=== PATIENT | female | born 1960 | race African-American/Black ===

== ENCOUNTER 2017-03-09 20:02 | Emergency (ER) | payer MEDICARE, MEDICAID ==
[~2017-03-09] VITALS: Ht 160 cm; Wt 70.0 kg
[~2017-03-09 20:02] MED LIST: FURO-152 PO; LEVOTHYROXINE PO; LIPITOR PO; WARF10TA20 PO
[2017-03-09] MEDS ORDERED: ACETAMINOPHEN WITH CODEINE 300/30MG TABLET PO ONE (22:00)
[2017-03-10 00:24] VITALS: BP 112/86
== END 2017-03-10 01:15 | disposition home or self-care (01) ==
LOC: ER 21:51
DX: M79.671 Pain in right foot (principal); I10 Essential (primary) hypertension; I50.9 Heart failure, unspecified; E03.9 Hypothyroidism, unspecified; F17.200 Nicotine dependence, unspecified, uncomplicated; F12.10 Cannabis abuse, uncomplicated; Z90.89 Acquired absence of other organs; Z92.29 Personal history of other drug therapy; Z79.01 Long term (current) use of anticoagulants; Z98.890 Other specified postprocedural states
CPT/HCPCS: 73630; 99284

== ENCOUNTER 2018-05-05 11:35 | Emergency (ER) | payer MEDICARE, MEDICAID ==
[~2018-05-05] VITALS: Ht 160 cm; Wt 75.0 kg
[~2018-05-05 11:35] MED LIST changes: -WARF10TA20 PO
[2018-05-05] MEDS ORDERED: IPRATROPIUM BROMIDE (0.02%) 0.5MG/2.5ML NEB HHN STA (12:13)
[2018-05-05] MEDS ORDERED: ALBUTEROL (0.083%) 2.5MG/3ML NEB HHN STA (12:13)
[2018-05-05] MEDS ORDERED: HYDROCODONE/ACETAMINOPHEN 5/325MG TABLET PO ONE (12:15)
[2018-05-05 14:43] VITALS: BP 145/82
== END 2018-05-05 14:44 | disposition home or self-care (01) ==
LOC: ER 13:26
DX: M13.842 Other specified arthritis, left hand (principal); J45.909 Unspecified asthma, uncomplicated; I25.10 Atherosclerotic heart disease of native coronary artery without angina pectoris; J44.9 Chronic obstructive pulmonary disease, unspecified; I11.0 Hypertensive heart disease with heart failure; I50.9 Heart failure, unspecified; E03.9 Hypothyroidism, unspecified; F12.10 Cannabis abuse, uncomplicated; Z90.49 Acquired absence of other specified parts of digestive tract; Z95.1 Presence of aortocoronary bypass graft; Z88.8 Allergy status to other drugs, medicaments and biological substances
CPT/HCPCS: 73110; 73130; 94640; 99284; J7611

== ENCOUNTER 2018-10-14 14:09 | Inpatient (IN) | payer MEDICARE, MEDICAID ==
[~2018-10-14] VITALS: Ht 160 cm; Wt 66.2 kg
[2018-10-14] MEDS ORDERED: HYDROCODONE/ACETAMINOPHEN 5/325MG TABLET PO ONE (18:00)
[2018-10-14] MEDS ORDERED: ONDANSETRON 4MG ODT PO ONE (18:00)
[2018-10-14 19:19] LABS: BASOPHILS % 1.4 % (0.0-2.0); EOSINOPHILS % 1.2 % (0.0-5.0); HEMATOCRIT. 39.8 % (36.0-48.0); HEMOGLOBIN. 13.2 g/dL (12.0-16.0); LYMPHOCYTES % 29.7 % (20.0-50.0); MEAN CORPUSCULAR HEMOGLOBIN 30.3 pg (28.0-32.0); MEAN CORPUSCULAR VOLUME 91.7 fL (81.0-99.0); MEAN PLATELET VOLUME 7.7 fl (7.4-10.4); MONOCYTES % 9.4 % (2.0-8.0); NEUTROPHILS % 58.3 % (40.0-76.0); PLATELET 285 x1000/uL (130-400); RED BLOOD CELL COUNT 4.34 mill/uL (4.2-5.4); RED CELL DISTRIBUTION WIDTH 18.1 % (11.6-14.6)
[2018-10-14 19:22] LABS: CHLORIDE 94 mEq/L (98-107)
[2018-10-14 19:36] LABS: PARTIAL THROMBOPLASTIN TIME 66.2 sec (23.4-31.0); PROTHROMBIN TIME 58.6 sec (9.1-11.1)
[2018-10-14] MEDS ORDERED: FENTANYL CITRATE/PF 50MCG/ML 2ML VIAL IV ONE (22:00)
[2018-10-14] MEDS ORDERED: ONDANSETRON HCL 4MG/2ML INJ IV ONE (22:00)
[2018-10-15] VITALS (7 sets, daily range): BP systolic 102–133; BP diastolic 59–80
[2018-10-15] MEDS ORDERED: IPRATROPIUM/ALBUTEROL 0.5-3(2.5)MG/3ML NEB HHN PRN ×3 (01:30→14:00)
[2018-10-15] MEDS ORDERED: ALBU90AE INH (01:40)
[2018-10-15] MEDS ORDERED: WARF7.5T48 PO (01:40)
[2018-10-15] MEDS: HYDROCODONE/ACETAMINOPHEN 10/325MG TABLET PO PRN ×3 (04:14→16:20)
[2018-10-15] MEDS: LEVOTHYROXINE SODIUM 50MCG TABLET PO SCH (06:35)
[2018-10-15] MEDS ORDERED: LEVOTHYROXINE SODIUM 50MCG TABLET PO SCH (07:20)
[2018-10-15 07:30] LABS: BASOPHILS % 1.3 % (0.0-2.0); EOSINOPHILS % 2.1 % (0.0-5.0); HEMATOCRIT. 39.3 % (36.0-48.0); HEMOGLOBIN. 13.2 g/dL (12.0-16.0); LYMPHOCYTES % 36.2 % (20.0-50.0); MEAN CORPUSCULAR HEMOGLOBIN 30.8 pg (28.0-32.0); MEAN CORPUSCULAR VOLUME 91.7 fL (81.0-99.0); MEAN PLATELET VOLUME 7.6 fl (7.4-10.4); MONOCYTES % 10.3 % (2.0-8.0); NEUTROPHILS % 50.1 % (40.0-76.0); PLATELET 295 x1000/uL (130-400); RED BLOOD CELL COUNT 4.29 mill/uL (4.2-5.4)
[2018-10-15 07:38] LABS: PROTHROMBIN TIME 48.5 sec (9.1-11.1)
[2018-10-15] MEDS: FUROSEMIDE 20MG TABLET PO SCH (08:44)
[2018-10-15] MEDS ORDERED: LISINOPRIL 20MG TABLET PO SCH (09:00)
[2018-10-15] MEDS ORDERED: FUROSEMIDE 20MG TABLET PO SCH (09:00)
[2018-10-15 16:21] LABS: PROTHROMBIN TIME 50.6 sec (9.1-11.1)
[2018-10-15 16:32] LABS: INR 5.2
[2018-10-16] VITALS: BP 115/78
[2018-10-16] MEDS: HYDROCODONE/ACETAMINOPHEN 10/325MG TABLET PO PRN (05:55)
[2018-10-16] MEDS: LEVOTHYROXINE SODIUM 50MCG TABLET PO SCH (06:31)
[2018-10-16 07:19] LABS: PROTHROMBIN TIME 46.4 sec (9.1-11.1)
[2018-10-16 08:00] VITALS: BP 116/63
[2018-10-16] MEDS: FUROSEMIDE 20MG TABLET PO SCH (09:00)
[2018-10-16 09:27] LABS: INR 4.7
[2018-10-16] MEDS ORDERED: PHYTONADIONE 10MG/ML AMP SUBCUT NR (10:45)
== END 2018-10-16 11:15 | disposition left against medical advice (07) | DRG 813 ==
LOC: ER 14:09 → 6EST 20:48 → EDBEDREQ 21:01 → EDBEDREQTM 21:01 → ENRESERV 21:47
PROVIDERS: ADMIT Internal Medicine; ATTEND Internal Medicine
DX: D68.9 Coagulation defect, unspecified (principal); I50.32 Chronic diastolic (congestive) heart failure; E87.1 Hypo-osmolality and hyponatremia; T45.515A Adverse effect of anticoagulants, initial encounter; J44.9 Chronic obstructive pulmonary disease, unspecified; I11.0 Hypertensive heart disease with heart failure; Z95.2 Presence of prosthetic heart valve; E03.9 Hypothyroidism, unspecified; E87.8 Other disorders of electrolyte and fluid balance, not elsewhere classified; J45.909 Unspecified asthma, uncomplicated; M19.90 Unspecified osteoarthritis, unspecified site; Z79.01 Long term (current) use of anticoagulants; F17.200 Nicotine dependence, unspecified, uncomplicated; I25.10 Atherosclerotic heart disease of native coronary artery without angina pectoris; Z90.49 Acquired absence of other specified parts of digestive tract; Y92.89 Other specified places as the place of occurrence of the external cause; I48.91 Unspecified atrial fibrillation
CPT/HCPCS: 36415; 73090; 73130; 80048; 84550; 93971; 96374; 96375; 99285; J2405; J3010; J3430; Q0162

== ENCOUNTER 2020-05-11 11:35 | Emergency (ER) | payer MEDICARE, MEDICAID ==
[~2020-05-11] VITALS: Ht 172.7 cm; Wt 55.0 kg
[~2020-05-11 11:35] MED LIST changes: +ALBU90AE INH; +WARF7.5T48 PO
[2020-05-11] MEDS ORDERED: HYDROCODONE/ACETAMINOPHEN 5/325MG TABLET PO ONE (13:00)
[2020-05-11] MEDS ORDERED: KETOROLAC 60MG/2ML VIAL IM ONE (13:00)
[2020-05-11 14:21] VITALS: BP 133/96
== END 2020-05-11 14:24 | disposition home or self-care (01) ==
LOC: ER 11:35
DX: M19.90 Unspecified osteoarthritis, unspecified site (principal); I11.0 Hypertensive heart disease with heart failure; I50.9 Heart failure, unspecified; J44.9 Chronic obstructive pulmonary disease, unspecified; E03.9 Hypothyroidism, unspecified; F12.10 Cannabis abuse, uncomplicated; Z90.49 Acquired absence of other specified parts of digestive tract; Z98.890 Other specified postprocedural states; Z95.1 Presence of aortocoronary bypass graft; Z88.8 Allergy status to other drugs, medicaments and biological substances; Z79.899 Other long term (current) drug therapy
CPT/HCPCS: 29105; 96372; 99283; J1885

== ENCOUNTER → 2020-08-26 | Outpatient (CLI) | payer MEDICARE, MEDICAID ==
[2020-08-26 10:32] LABS: BASOPHILS % 1.5 % (0.0-2.0); EOSINOPHILS % 7.9 % (0.0-5.0); HEMATOCRIT. 32.4 % (36.0-48.0); HEMOGLOBIN. 10.7 g/dL (12.0-16.0); LYMPHOCYTES % 41.7 % (20.0-50.0); MEAN PLATELET VOLUME 6.4 fl (7.4-10.4); MONOCYTES % 5.7 % (2.0-8.0); NEUTROPHILS % 43.2 % (40.0-76.0); PLATELET 218 x1000/uL (130-400); RED BLOOD CELL COUNT 3.44 mill/uL (4.2-5.4); RED CELL DISTRIBUTION WIDTH 17.6 % (11.6-14.6)
[2020-08-26 10:43] LABS: CHLORIDE 105 mEq/L (98-107)
[2020-08-26 10:50] LABS: LDL CHOLESTEROL 130 mg/dL (5-100); PROTHROMBIN TIME 50.8 sec (9.6-11.0)
[2020-08-26 10:52] LABS: T4 FREE 0.71 ng/dL (0.76-1.46)
[2020-08-26 10:53] LABS: HDL CHOLESTEROL 65 mg/dL (40-59)
[2020-08-26 11:06] LABS: INR 5.3
== END | disposition home or self-care (01) ==
LOC: LAB 09:49
PROVIDERS: ATTEND Internal Medicine
DX: I10 Essential (primary) hypertension (principal); E78.5 Hyperlipidemia, unspecified; E11.9 Type 2 diabetes mellitus without complications; D51.3 Other dietary vitamin B12 deficiency anemia; D64.9 Anemia, unspecified; E21.3 Hyperparathyroidism, unspecified; R42 Dizziness and giddiness; D68.9 Coagulation defect, unspecified; E20.9 Hypoparathyroidism, unspecified
CPT/HCPCS: 36415; 80053; 80061; 83036; 84439; 84443; 85025

== ENCOUNTER 2021-04-05 13:36 | Emergency (ER) | payer MEDICARE, MEDICAID ==
[~2021-04-05] VITALS: Ht 160 cm; Wt 69.0 kg
[2021-04-05 15:17] LABS: EOSINOPHILS % 4.5 % (0.0-5.0); HEMATOCRIT. 30.8 % (36.0-48.0); HEMOGLOBIN. 10.5 g/dL (12.0-16.0); LYMPHOCYTES % 34.9 % (20.0-50.0); MEAN CORPUSCULAR HEMOGLOBIN 31.8 pg (28.0-32.0); MEAN CORPUSCULAR VOLUME 93.2 fL (81.0-99.0); MEAN PLATELET VOLUME 7.8 fl (7.4-10.4); MONOCYTES % 7.1 % (2.0-8.0); NEUTROPHILS % 52.5 % (40.0-76.0); PLATELET 181 x1000/uL (130-400); RED BLOOD CELL COUNT 3.31 mill/uL (4.2-5.4); RED CELL DISTRIBUTION WIDTH 17.4 % (11.6-14.6)
[2021-04-05 15:21] LABS: CHLORIDE 103 mEq/L (98-107)
[2021-04-05 15:29] LABS: INR 3.3; PARTIAL THROMBOPLASTIN TIME 53.4 sec (23.4-31.0); PROTHROMBIN TIME 32.4 sec (9.6-11.0)
[2021-04-05 18:50] VITALS: BP 172/89
[2021-04-05] MEDS ORDERED: ALBU6.7H11 INH (19:03)
[2021-04-05] MEDS ORDERED: P50 MT (19:03)
== END 2021-04-05 19:35 | disposition home or self-care (01) ==
LOC: ER 13:36
DX: R06.02 Shortness of breath (principal); F12.10 Cannabis abuse, uncomplicated; E78.00 Pure hypercholesterolemia, unspecified; I10 Essential (primary) hypertension; J44.1 Chronic obstructive pulmonary disease with (acute) exacerbation; J45.909 Unspecified asthma, uncomplicated; Z88.6 Allergy status to analgesic agent; Z98.890 Other specified postprocedural states; Z79.899 Other long term (current) drug therapy; Z90.49 Acquired absence of other specified parts of digestive tract
CPT/HCPCS: 36415; 71045; 80053; 83880; 84484; 85025; 93005; 93970; 99285

== ENCOUNTER 2021-06-13 16:25 | Emergency (ER) | payer OTHER, MEDICAID ==
[~2021-06-13] VITALS: Ht 160 cm; Wt 68.0 kg
[~2021-06-13 16:25] MED LIST changes: +ALBU6.7H11 INH; +P50 MT
[2021-06-13 16:29] VITALS: BP 130/57
[2021-06-13] MEDS ORDERED: HYDROCODONE/ACETAMINOPHEN 10/325MG TABLET PO ONE (17:15)
== END 2021-06-13 18:35 | disposition left against medical advice (07) ==
LOC: ER 16:25
DX: M16.11 Unilateral primary osteoarthritis, right hip (principal); I11.9 Hypertensive heart disease without heart failure; E78.00 Pure hypercholesterolemia, unspecified; J45.909 Unspecified asthma, uncomplicated; J44.9 Chronic obstructive pulmonary disease, unspecified
CPT/HCPCS: 73502; 99283

== ENCOUNTER 2022-01-09 09:32 | Emergency (ER) | payer MEDICARE, MEDICAID ==
[~2022-01-09] VITALS: Ht 165.1 cm; Wt 55.0 kg
[~2022-01-09 09:32] MED LIST changes: -ALBU6.7H11 INH; +ALBU6.7H15 INH
[2022-01-09] MEDS ORDERED: OXYMETAZOLINE HCL NASAL SPRAY 15ML BOTHNSTRLS SCH (10:15)
[2022-01-09 10:55] LABS: BASOPHILS % 1.3 % (0.0-2.0); EOSINOPHILS % 4.4 % (0.0-5.0); HEMATOCRIT. 30.8 % (36.0-48.0); HEMOGLOBIN. 10.5 g/dL (12.0-16.0); LYMPHOCYTES % 39.7 % (20.0-50.0); MEAN CORPUSCULAR HEMOGLOBIN 31.2 pg (28.0-32.0); MEAN CORPUSCULAR VOLUME 91.6 fL (81.0-99.0); MEAN PLATELET VOLUME 6.9 fl (7.4-10.4); MONOCYTES % 6.6 % (2.0-8.0); PLATELET 259 x1000/uL (130-400); RED BLOOD CELL COUNT 3.36 mill/uL (4.2-5.4); RED CELL DISTRIBUTION WIDTH 16.8 % (11.6-14.6)
[2022-01-09 11:17] LABS: PROTHROMBIN TIME 60.2 sec (9.6-11.0)
[2022-01-09 11:22] LABS: INR 6.5
[2022-01-09 11:23] LABS: PARTIAL THROMBOPLASTIN TIME 87.2 sec (23.4-31.0)
[2022-01-09] MEDS ORDERED: PHYTONADIONE 10MG/ML AMP SUBCUT SCH (11:45)
[2022-01-09 12:20] VITALS: BP 133/83
== END 2022-01-09 12:20 | disposition home or self-care (01) ==
LOC: ER 09:55
DX: R04.0 Epistaxis (principal); D68.32 Hemorrhagic disorder due to extrinsic circulating anticoagulants; T45.515A Adverse effect of anticoagulants, initial encounter; Y92.018 Other place in single-family (private) house as the place of occurrence of the external cause; I25.10 Atherosclerotic heart disease of native coronary artery without angina pectoris; Z95.1 Presence of aortocoronary bypass graft; J44.9 Chronic obstructive pulmonary disease, unspecified; J45.909 Unspecified asthma, uncomplicated; E78.00 Pure hypercholesterolemia, unspecified; I10 Essential (primary) hypertension; Z79.01 Long term (current) use of anticoagulants; Z79.82 Long term (current) use of aspirin; Z79.51 Long term (current) use of inhaled steroids; Z79.52 Long term (current) use of systemic steroids; Z79.899 Other long term (current) drug therapy
CPT/HCPCS: 36415; 85025; 85610; 85730; 96372; 99283; J3430

== ENCOUNTER 2023-01-01 11:37 | Inpatient (IN) | payer MEDICARE, MEDICAID ==
[~2023-01-01] VITALS: Ht 160 cm; Wt 62.3 kg
[2023-01-01 17:45] VITALS: BP 152/63
[2023-01-01] MEDS ORDERED: WARF-53 MT (18:10)
[2023-01-01] MEDS ORDERED: WARF1TAB85 MT (18:10)
[2023-01-01] MEDS ORDERED: GUAIFENESIN 200MG/10ML SUGAR FREE UDC PO PRN (18:30)
[2023-01-01] MEDS ORDERED: IPRATROPIUM/ALBUTEROL 0.5-3(2.5)MG/3ML NEB HHN SCH (18:30)
[2023-01-01] MEDS ORDERED: NITROGLYCERIN 0.4MG TABLET SL SL PRN (18:30)
[2023-01-01] MEDS ORDERED: DOCUSATE SODIUM 100MG CAPSULE PO PRN (18:30)
[2023-01-01] MEDS ORDERED: MAGNESIUM/ALUMINUM HYDROXIDE/SIMETHICONE 30ML UDC PO PRN (18:30)
[2023-01-01] MEDS ORDERED: ZOLPIDEM TARTRATE 5MG TABLET PO PRN (18:30)
[2023-01-01] MEDS ORDERED: IPRATROPIUM/ALBUTEROL 0.5-3(2.5)MG/3ML NEB NEB PRN (18:30)
[2023-01-01] MEDS ORDERED: ACETAMINOPHEN 325MG TABLET PO PRN (18:30)
[2023-01-01] MEDS ORDERED: CLONIDINE 0.1MG TABLET PO PRN (18:30)
[2023-01-01] MEDS ORDERED: ONDANSETRON HCL 4MG/2ML INJ IV PRN (18:30)
[2023-01-01] MEDS ORDERED: IPRATROPIUM BROMIDE (0.02%) 0.5MG/2.5ML NEB HHN PRN (19:15)
[2023-01-01] MEDS: ALBUTEROL (0.083%) 2.5MG/3ML NEB HHN SCH (19:15)
[2023-01-01] MEDS ORDERED: ALBUTEROL (0.083%) 2.5MG/3ML NEB HHN PRN (19:15)
[2023-01-01] MEDS: IPRATROPIUM BROMIDE (0.02%) 0.5MG/2.5ML NEB HHN SCH (19:15)
[2023-01-01 20:00] VITALS: BP 129/72
[2023-01-01] MEDS ORDERED: LEVO50TA PO (20:06)
[2023-01-01] MEDS ORDERED: FURO20TA4 PO (20:07)
[2023-01-01] MEDS: AZITHROMYCIN 500 MG in DEXT 5% WATER 250 ML IV SCH (21:28)
[2023-01-01] MEDS: GUAIFENESIN 600MG ER TABLET PO SCH (21:28)
[2023-01-01] MEDS: FAMOTIDINE 20MG TABLET PO SCH (21:28)
[2023-01-01] MEDS: FUROSEMIDE 40MG/4ML VIAL IVP SCH (21:28)
[2023-01-01] MEDS: METHYLPREDNISOLONE SOD SUCC 40 MG/ML VIAL IV SCH (21:28)
[2023-01-01] MEDS: ACETAMINOPHEN 325MG TABLET PO PRN (21:29)
[2023-01-01 21:58] LABS: PROTHROMBIN TIME 60.6 sec (9.6-11.0)
[2023-01-01 22:00] LABS: HEMATOCRIT. 29.9 % (36.0-48.0); HEMOGLOBIN. 9.9 g/dL (12.0-16.0); MEAN CORPUSCULAR HEMOGLOBIN 30.6 pg (28.0-32.0); MEAN PLATELET VOLUME 7.5 fl (7.4-10.4); PLATELET 266 x1000/uL (130-400); RED BLOOD CELL COUNT 3.22 mill/uL (4.2-5.4); RED CELL DISTRIBUTION WIDTH 17.7 % (11.6-14.6)
[2023-01-01 22:12] LABS: T4 FREE 0.65 ng/dL (0.76-1.46)
[2023-01-01 22:33] LABS: PLATELET ESTIMATE NORMAL
[2023-01-01 22:36] LABS: VITAMIN B12 SERUM 447 pg/mL (211-911)
[2023-01-01 22:55] LABS: INR 6.3
[2023-01-02] VITALS: BP 126/79
[2023-01-02 00:02] LABS: CHLORIDE 97 mEq/L (98-107)
[2023-01-02 00:13] LABS: PROTHROMBIN TIME 66.5 sec (9.6-11.0)
[2023-01-02] MEDS: ALBUTEROL (0.083%) 2.5MG/3ML NEB HHN SCH ×6 (00:38→21:42)
[2023-01-02 00:39] LABS: CREATINE KINASE 2220 IU/L (26-192); CREATINE KINASE MB FRACTION 6.7 ng/mL (0.5-3.6)
[2023-01-02] MEDS: IPRATROPIUM BROMIDE (0.02%) 0.5MG/2.5ML NEB HHN SCH ×6 (00:39→21:42)
[2023-01-02 00:53] LABS: PARTIAL THROMBOPLASTIN TIME 76.9 sec (23.4-31.0)
[2023-01-02 01:27] LABS: *AMPHETAMINES SCREEN URINE NEGATIVE (NEGATIVE); *BARBITURATES SCREEN URINE NEGATIVE (NEGATIVE); *BENZODIAZEPINES SCREEN URINE NEGATIVE (NEGATIVE); *COCAINE SCREEN URINE NEGATIVE (NEGATIVE); CANNABINOID URINE SCREEN NEGATIVE (NEGATIVE); METHADONE URINE SCREEN NEGATIVE (NEGATIVE); OPIATES URINE SCREEN NEGATIVE (NEGATIVE); PHENCYCLIDINE URINE SCREEN NEGATIVE (NEGATIVE)
[2023-01-02 04:00] VITALS: BP 146/77
[2023-01-02] MEDS: SPIRONOLACTONE 25MG TABLET PO SCH ×2 (06:45→17:11)
[2023-01-02] MEDS: METHYLPREDNISOLONE SOD SUCC 40 MG/ML VIAL IV SCH ×4 (06:45→21:37)
[2023-01-02] MEDS: FUROSEMIDE 40MG/4ML VIAL IVP SCH ×2 (06:45→17:11)
[2023-01-02] MEDS ORDERED: LEVOTHYROXINE SODIUM 50MCG TABLET PO SCH (07:40)
[2023-01-02 08:00] VITALS: BP 138/70
[2023-01-02] MEDS ORDERED: ENALAPRIL 5MG TABLET PO SCH (09:00)
[2023-01-02] MEDS: GUAIFENESIN 600MG ER TABLET PO SCH ×3 (09:00→21:22)
[2023-01-02] MEDS ORDERED: LOSARTAN POTASSIUM 50 MG TABLET PO SCH (11:00)
[2023-01-02 12:00] VITALS: BP 131/77
[2023-01-02 16:00] VITALS: BP 144/71
[2023-01-02] MEDS: ACETAMINOPHEN 325MG TABLET PO PRN ×2 (17:10→22:03)
[2023-01-02 20:00] VITALS: BP 134/80
[2023-01-02] MEDS: AZITHROMYCIN 500 MG in DEXT 5% WATER 250 ML IV SCH (21:21)
[2023-01-02] MEDS: FAMOTIDINE 20MG TABLET PO SCH (21:22)
[2023-01-03] VITALS: BP 112/42
[2023-01-03] MEDS: IPRATROPIUM BROMIDE (0.02%) 0.5MG/2.5ML NEB HHN SCH (01:34)
[2023-01-03] MEDS: ALBUTEROL (0.083%) 2.5MG/3ML NEB HHN SCH (01:34)
[2023-01-03 04:00] VITALS: BP 122/69
[2023-01-03] MEDS: SPIRONOLACTONE 25MG TABLET PO SCH (05:55)
[2023-01-03] MEDS: FUROSEMIDE 40MG/4ML VIAL IVP SCH (05:55)
[2023-01-03] MEDS: METHYLPREDNISOLONE SOD SUCC 40 MG/ML VIAL IV SCH (05:56)
== END 2023-01-03 07:36 | disposition left against medical advice (07) | DRG 291 ==
LOC: 7WST 18:01
PROVIDERS: ADMIT Internal Medicine; ATTEND Internal Medicine
DX: I11.0 Hypertensive heart disease with heart failure (principal); I50.33 Acute on chronic diastolic (congestive) heart failure; J96.01 Acute respiratory failure with hypoxia; J44.1 Chronic obstructive pulmonary disease with (acute) exacerbation; E87.1 Hypo-osmolality and hyponatremia; J45.901 Unspecified asthma with (acute) exacerbation; E03.9 Hypothyroidism, unspecified; D64.9 Anemia, unspecified; Z20.822 Contact with and (suspected) exposure to COVID-19; E78.5 Hyperlipidemia, unspecified; I25.10 Atherosclerotic heart disease of native coronary artery without angina pectoris; M19.90 Unspecified osteoarthritis, unspecified site; Z53.29 Procedure and treatment not carried out because of patient's decision for other reasons; Z88.6 Allergy status to analgesic agent; Z28.310 Unvaccinated for COVID-19; Z95.2 Presence of prosthetic heart valve; Z79.01 Long term (current) use of anticoagulants; Z79.899 Other long term (current) drug therapy
CPT/HCPCS: 36415; 71045; 80053; 80305; 82550; 82553; 82607; 82746; 83036; 83540; 83550; 83605; 83880; 84145; 84439; 84443; 84484; 85025; 87070; 87426; 93306; 93970; 94640; J0456; J1940; J2405; J2920; J7060

== ENCOUNTER 2023-02-17 11:16 | Emergency (ER) | payer MEDICARE, MEDICAID ==
[~2023-02-17] VITALS: Ht 160 cm; Wt 70.0 kg
[~2023-02-17 11:16] MED LIST changes: -FURO-152 PO; +FURO20TA4 PO; +LEVO50TA PO; -LEVOTHYROXINE PO; -P50 MT; +WARF-53 MT; +WARF1TAB85 MT; -WARF7.5T48 PO
[2023-02-17] MEDS ORDERED: IPRATROPIUM/ALBUTEROL 0.5-3(2.5)MG/3ML NEB HHN ONE (11:30)
[2023-02-17 12:02] LABS: HEMATOCRIT 32.1 % (36.0-48.0); MEAN CORPUSCULAR HEMOGLOBIN 31.1 pg (28.0-32.0); MEAN CORPUSCULAR VOLUME 91.1 fL (81.0-99.0); PLATELET 321 x1000/uL (130-400); RED BLOOD CELL COUNT 3.52 mill/uL (4.2-5.4); RED CELL DISTRIBUTION WIDTH 17.6 % (11.6-14.6)
[2023-02-17 12:29] LABS: HCG SCREEN NEGATIVE
[2023-02-17] MEDS ORDERED: IPRATROPIUM/ALBUTEROL 0.5-3(2.5)MG/3ML NEB ONE (13:07)
[2023-02-17 13:24] LABS: CHLORIDE 98 mEq/L (98-107)
[2023-02-17 13:29] LABS: PROTHROMBIN TIME 44.4 sec (9.6-11.0)
[2023-02-17 13:35] LABS: INR 4.5
[2023-02-17] MEDS ORDERED: PHYTONADIONE 10 MG/10 ML ORALSYR PO ONE (14:30)
[2023-02-17 15:00] VITALS: BP 140/82
[2023-02-17] MEDS ORDERED: P50 MT (15:38)
[2023-02-17] MEDS ORDERED: IPRA4AER INH (15:38)
[2023-02-17] MEDS ORDERED: ALBU90AE INH (15:38)
== END 2023-02-17 16:01 | disposition home or self-care (01) ==
LOC: ER 11:39
DX: J44.1 Chronic obstructive pulmonary disease with (acute) exacerbation (principal); I10 Essential (primary) hypertension; Z90.49 Acquired absence of other specified parts of digestive tract; Z79.899 Other long term (current) drug therapy
CPT/HCPCS: 36415; 71045; 80053; 83880; 84484; 84703; 85027; 93005; 94640; 99285; J3430

== ENCOUNTER 2023-04-23 00:19 | Emergency (ER) | payer MEDICARE, MEDICAID ==
[~2023-04-23] VITALS: Ht 160 cm; Wt 71.0 kg
[~2023-04-23 00:19] MED LIST changes: +IPRA4AER INH; +P50 MT
[2023-04-23] MEDS ORDERED: METHYLPREDNISOLONE SOD SUCC 125MG/2ML (ACT-O-VIAL) IV STA (01:06)
[2023-04-23] MEDS ORDERED: IPRATROPIUM BROMIDE (0.02%) 0.5MG/2.5ML NEB HHN STA (01:06)
[2023-04-23] MEDS ORDERED: ALBUTEROL (0.083%) 2.5MG/3ML NEB HHN STA (01:06)
[2023-04-23] MEDS ORDERED: ASPIRIN 81MG TABLET PO ONE (01:15)
[2023-04-23] MEDS ORDERED: FUROSEMIDE 40MG/4ML VIAL IV ONE (01:15)
[2023-04-23 01:24] VITALS: PULSE 72; RESP 20; O2SAT 100
[2023-04-23 02:30] LABS: BASOPHILS % 1.3 % (0.0-2.0); EOSINOPHILS % 8.1 % (0.0-5.0); HEMATOCRIT. 30.9 % (36.0-48.0); HEMOGLOBIN. 10.4 g/dL (12.0-16.0); MEAN CORPUSCULAR HEMOGLOBIN 29.6 pg (28.0-32.0); MEAN PLATELET VOLUME 7.2 fl (7.4-10.4); MONOCYTES % 8.5 % (2.0-8.0); NEUTROPHILS % 50.1 % (40.0-76.0); PLATELET 236 x1000/uL (130-400); RED BLOOD CELL COUNT 3.51 mill/uL (4.2-5.4); RED CELL DISTRIBUTION WIDTH 17.8 % (11.6-14.6)
[2023-04-23] MEDS ORDERED: ACETAMINOPHEN 325MG TABLET PO ONE (03:15)
[2023-04-23 03:21] LABS: CHLORIDE 96 mEq/L (98-107)
[2023-04-23 12:51] VITALS: BP 153/93; PULSE 88; RESP 18; TEMP 98.8
== END 2023-04-23 14:01 | disposition admitted as inpatient to this hospital (09) ==
LOC: ER 00:19 → CANBEDREQ 14:15
DX: I11.0 Hypertensive heart disease with heart failure (principal); I50.9 Heart failure, unspecified; J44.1 Chronic obstructive pulmonary disease with (acute) exacerbation; Z90.49 Acquired absence of other specified parts of digestive tract; Z98.890 Other specified postprocedural states
CPT/HCPCS: 99285; 96374; 71045; 96375; 80053; 83880; 85025; 84484; 36415; 93005; 94644; J1940; J2930; 94640

== ENCOUNTER 2024-03-23 15:58 | Inpatient (IN) | payer MEDICARE, MEDICAID ==
[~2024-03-23] VITALS: Ht 160 cm; Wt 69.4 kg
[2024-03-23] MEDS: IPRATROPIUM BROMIDE (0.02%) 0.5MG/2.5ML NEB HHN STA (16:34)
[2024-03-23] MEDS: ALBUTEROL (0.083%) 2.5MG/3ML NEB HHN SCH (16:34)
[2024-03-23 16:35] VITALS: PULSE 87; RESP 22; O2SAT 98
[2024-03-23 16:44] LABS: BASOPHILS % 2.5 % (0.0-2.0); EOSINOPHILS % 7.6 % (0.0-5.0); HEMOGLOBIN. 10.7 g/dL (12.0-16.0); MEAN CORPUSCULAR HGB CONC 32.3 g/dL (31.0-37.0); MEAN CORPUSCULAR VOLUME 86.7 fL (81.0-99.0); MEAN PLATELET VOLUME 7.2 fl (7.4-10.4); MONOCYTES % 10.8 % (2.0-8.0); NEUTROPHILS % 53.1 % (40.0-76.0); PLATELET 271 x1000/uL (130-400); RED BLOOD CELL COUNT 3.81 mill/uL (4.2-5.4); RED CELL DISTRIBUTION WIDTH 18.9 % (11.6-14.6); WHITE BLOOD COUNT 3.1 x1000/uL (4.5-11.0)
[2024-03-23 16:49] LABS: CHLORIDE 96 mEq/L (98-107); SODIUM 128 mEq/L (136-145)
[2024-03-23 16:50] LABS: CALCIUM 10.1 mg/dL (8.7-10.4); CARBON DIOXIDE 28 mEq/L (21-32)
[2024-03-23 16:55] LABS: CREATININE 1.2 mg/dL (0.6-1.0); GLUCOSE 80 mg/dL (70-105); UREA NITROGEN BLOOD 13 mg/dL (9-23)
[2024-03-23 16:56] LABS: TROPONIN I HIGH SENSITIVITY 16 ng/L (3.0-34)
[2024-03-23] MEDS: MAGNESIUM 2 G PREMIX 50 ML IV ONE (17:12)
[2024-03-23] MEDS: METHYLPREDNISOLONE SOD SUCC 125MG/2ML (ACT-O-VIAL) IV STA (17:12)
[2024-03-23] MEDS ORDERED: IPRATROPIUM/ALBUTEROL 0.5-3(2.5)MG/3ML NEB HHN PRN ×2 (20:15→21:00)
[2024-03-23] MEDS ORDERED: GUAIFENESIN 200MG/10ML SUGAR FREE UDC PO PRN (20:15)
[2024-03-23] MEDS ORDERED: ONDANSETRON HCL 4MG/2ML INJ IV PRN (20:15)
[2024-03-23] MEDS ORDERED: IPRATROPIUM/ALBUTEROL 0.5-3(2.5)MG/3ML NEB HHN SCH (20:15)
[2024-03-23] MEDS ORDERED: MAGNESIUM/ALUMINUM HYDROXIDE/SIMETHICONE 30ML UDC PO PRN (20:15)
[2024-03-23] MEDS ORDERED: DOCUSATE SODIUM 100MG CAPSULE PO PRN (20:15)
[2024-03-23] MEDS ORDERED: CLONIDINE 0.1MG TABLET PO PRN (20:15)
[2024-03-23] MEDS ORDERED: ACETAMINOPHEN 325MG TABLET PO PRN (20:15)
[2024-03-23] MEDS ORDERED: DEXTROSE 50% WATER 50ML SYRINGE IV PRN (20:30)
[2024-03-23 20:49] LABS: IRON 50 ug/dL (50-170)
[2024-03-23 20:57] LABS: FERRITIN 18 ng/mL (10-291); FOLIC ACID (FOLATE) SERUM 12.47 ng/mL (>5.38); VITAMIN B12 SERUM 696 pg/mL (211-911)
[2024-03-23] MEDS: LISINOPRIL 10MG TABLET PO SCH (21:19)
[2024-03-23] MEDS: SODIUM CHLORIDE 0.9% 1,000 ML IV ONE (21:19)
[2024-03-23] MEDS: BLOOD SUGAR DIAGNOSTIC STRIP TEST SCH (21:45)
[2024-03-23 23:14] VITALS: PULSE 84; RESP 20; O2SAT 96
[2024-03-23] MEDS: IPRATROPIUM/ALBUTEROL 0.5-3(2.5)MG/3ML NEB HHN SCH (23:14)
[2024-03-23 23:57] LABS: TROPONIN I HIGH SENSITIVITY 9 ng/L (3.0-34)
[2024-03-23 23:58] LABS: CREATINE KINASE 527 IU/L (34-145)
[2024-03-24] MEDS: MAGNESIUM 4 G PREMIX 100 ML IV NR (01:49)
[2024-03-24 02:41] VITALS: PULSE 86; RESP 20; O2SAT 94
[2024-03-24 04:56] VITALS: BP 156/79; PULSE 89; RESP 20; TEMP 98.3
[2024-03-24 04:57] VITALS: BP 156/79; PULSE 85; RESP 20; TEMP 98.4
[2024-03-24] MEDS: LACTATED RINGERS 1,000 ML IV NR (06:39)
[2024-03-24 08:00] VITALS: BP 153/90; PULSE 82; RESP 15; TEMP 98.1
[2024-03-24] MEDS: METHYLPREDNISOLONE SOD SUCC 40MG/ML (ACT-O-VIAL) IV SCH (08:00)
[2024-03-24] MEDS ORDERED: BUDESONIDE 0.5MG/2ML NEB HHN SCH (09:00)
[2024-03-24] MEDS: PANTOPRAZOLE 40MG DR TABLET PO SCH (09:06)
[2024-03-24 12:00] VITALS: BP 150/86; PULSE 90; RESP 18; TEMP 97.9
== END 2024-03-24 11:45 | disposition left against medical advice (07) | DRG 189 ==
LOC: ER 15:58 → 5WST 19:59 → EDBEDREQTM 20:00 → EDBEDREQ 20:00 → 7EST 03-24 05:38
PROVIDERS: ADMIT Internal Medicine; ATTEND Internal Medicine
DX: J96.21 Acute and chronic respiratory failure with hypoxia (principal); J44.1 Chronic obstructive pulmonary disease with (acute) exacerbation; E87.1 Hypo-osmolality and hyponatremia; M62.82 Rhabdomyolysis; N17.9 Acute kidney failure, unspecified; R65.10 Systemic inflammatory response syndrome (SIRS) of non-infectious origin without acute organ dysfunction; D64.9 Anemia, unspecified; D72.10 Eosinophilia, unspecified; D72.819 Decreased white blood cell count, unspecified; I11.0 Hypertensive heart disease with heart failure; Z20.822 Contact with and (suspected) exposure to COVID-19; I50.9 Heart failure, unspecified; Z53.29 Procedure and treatment not carried out because of patient's decision for other reasons; Z79.899 Other long term (current) drug therapy; Z88.6 Allergy status to analgesic agent; Z95.1 Presence of aortocoronary bypass graft; Z95.2 Presence of prosthetic heart valve; Z99.81 Dependence on supplemental oxygen
CPT/HCPCS: 36415; 71045; 80048; 82550; 82607; 82728; 82746; 82962; 83036; 83540; 83735; 83880; 84100; 84145; 84484; 85025; 87426; 87804; 93005; 93970; 94640; 99291; J2920; J2930; J3475

== ENCOUNTER 2025-05-01 20:43 | Emergency (ER) | payer MEDICARE, MEDICAID ==
[~2025-05-01] VITALS: Ht 160 cm; Wt 70.3 kg
[2025-05-01 20:59] VITALS: O2SAT 94
[2025-05-01 21:00] VITALS: TEMP 37.2
[2025-05-01] MEDS: ACETAMINOPHEN WITH CODEINE 300/30MG TABLET PO ONE (22:50)
[2025-05-02 00:29] LABS: BASOPHILS % 2.3 % (0.0-2.0); EOSINOPHILS % 0.6 % (0.0-5.0); HEMATOCRIT. 33.7 % (36.0-48.0); HEMOGLOBIN. 11.5 g/dL (12.0-16.0); LYMPHOCYTES % 13.9 % (20.0-50.0); MEAN CORPUSCULAR HEMOGLOBIN 30.4 pg (28.0-32.0); MEAN CORPUSCULAR HGB CONC 34.1 g/dL (31.0-37.0); MEAN CORPUSCULAR VOLUME 89.4 fL (81.0-99.0); MEAN PLATELET VOLUME 7.3 fl (7.4-10.4); MONOCYTES % 8.5 % (2.0-8.0); NEUTROPHILS % 74.7 % (40.0-76.0); PLATELET 273 x1000/uL (130-400); RED BLOOD CELL COUNT 3.77 mill/uL (4.2-5.4); RED CELL DISTRIBUTION WIDTH 16.8 % (11.6-14.6); WHITE BLOOD COUNT 6.6 x1000/uL (4.5-11.0)
[2025-05-02 00:38] LABS: CHLORIDE 91 mEq/L (98-107); POTASSIUM 3.9 mEq/L (3.5-5.1); SODIUM 129 mEq/L (136-145)
[2025-05-02 00:39] LABS: CALCIUM 9.8 mg/dL (8.7-10.4); CARBON DIOXIDE 28 mEq/L (21-32)
[2025-05-02 00:44] LABS: GLUCOSE 88 mg/dL (70-105); TROPONIN I HIGH SENSITIVITY 28 ng/L (3.0-34); UREA NITROGEN BLOOD 19 mg/dL (9-23)
[2025-05-02 00:45] LABS: INR 3.2; PARTIAL THROMBOPLASTIN TIME 48.7 sec (23.4-31.0); PROTHROMBIN TIME 31.1 sec (9.6-11.0)
[2025-05-02 00:46] LABS: ALANINE AMINOTRANSFERASE 10 IU/L (10-49); ALBUMIN 4.4 g/dL (3.2-4.8); ASPARTATE AMINOTRANSFERASE 69 IU/L (<34); BILIRUBIN TOTAL 1.3 mg/dL (0.1-1.0)
[2025-05-02 00:47] LABS: CREATININE 1.3 mg/dL (0.6-1.0)
[2025-05-02] MEDS ORDERED: T3 PO (02:14)
[2025-05-02 02:29] VITALS: BP 124/73; PULSE 90; RESP 18; O2SAT 95
== END 2025-05-02 02:30 | disposition home or self-care (01) ==
LOC: ER 20:43
DX: R60.9 Edema, unspecified (principal); E87.1 Hypo-osmolality and hyponatremia; N18.9 Chronic kidney disease, unspecified; I50.9 Heart failure, unspecified; I51.9 Heart disease, unspecified; Z88.6 Allergy status to analgesic agent; Z79.899 Other long term (current) drug therapy
CPT/HCPCS: 36415; 71045; 80053; 83880; 84484; 85025; 93005; 93971; 99285

== ENCOUNTER 2025-05-13 22:50 | Emergency (ER) | payer MEDICARE, MEDICAID ==
[~2025-05-13] VITALS: Ht 160 cm; Wt 70.5 kg
[~2025-05-13 22:50] MED LIST changes: +T3 PO
[2025-05-13 23:28] VITALS: O2SAT 94
[2025-05-14] MEDS: ACETAMINOPHEN 500MG TABLET PO ONE (01:54)
[2025-05-14] MEDS ORDERED: TOPUD MT (04:33)
[2025-05-14 04:56] VITALS: BP 109/70; PULSE 73; RESP 19; TEMP 36.8; O2SAT 100
== END 2025-05-14 05:08 | disposition home or self-care (01) ==
LOC: ER 22:50
DX: M19.041 Primary osteoarthritis, right hand (principal); M19.042 Primary osteoarthritis, left hand; I50.9 Heart failure, unspecified; Z95.1 Presence of aortocoronary bypass graft; Z79.899 Other long term (current) drug therapy; Z79.01 Long term (current) use of anticoagulants; Z88.6 Allergy status to analgesic agent
CPT/HCPCS: 73130; 93971; 99284; A4565

== ENCOUNTER 2025-07-06 22:43 | Inpatient (IN) | payer MEDICARE, MEDICAID ==
[~2025-07-06] VITALS: Ht 160 cm; Wt 64.9 kg
[~2025-07-06 22:43] MED LIST changes: +TOPUD MT
[2025-07-06 22:46] VITALS: O2SAT 98
[2025-07-06] MEDS ORDERED: ONDANSETRON HCL 4MG/2ML INJ IV ONE (23:15)
[2025-07-06] MEDS ORDERED: MORPHINE SULFATE 4 MG/ML INJ (FOR IV/IM USE) IV ONE (23:15)
[2025-07-06 23:39] LABS: BASOPHILS % 1.4 % (0.0-2.0); EOSINOPHILS % 1.6 % (0.0-5.0); HEMATOCRIT. 29.6 % (36.0-48.0); HEMOGLOBIN. 9.7 g/dL (12.0-16.0); LYMPHOCYTES % 20.5 % (20.0-50.0); MEAN PLATELET VOLUME 6.8 fl (7.4-10.4); MONOCYTES % 10.0 % (2.0-8.0); NEUTROPHILS % 66.5 % (40.0-76.0); PLATELET 389 x1000/uL (130-400); RED BLOOD CELL COUNT 3.27 mill/uL (4.2-5.4); RED CELL DISTRIBUTION WIDTH 18.3 % (11.6-14.6)
[2025-07-06 23:43] LABS: INR 2.5
[2025-07-07 00:11] LABS: CREATININE 1.2 mg/dL (0.6-1.0)
[2025-07-07 00:12] LABS: UREA NITROGEN BLOOD 18 mg/dL (9-23)
[2025-07-07 00:13] LABS: ASPARTATE AMINOTRANSFERASE 65 IU/L (<34); BILIRUBIN DIRECT 0.2 mg/dL (<=3.0)
[2025-07-07 00:14] LABS: BILIRUBIN TOTAL 0.6 mg/dL (0.1-1.0); PROTEIN TOTAL 6.8 g/dL (6.0-8.3)
[2025-07-07 00:20] LABS: TROPONIN I HIGH SENSITIVITY 68 ng/L (3.0-34)
[2025-07-07] MEDS: MORPHINE SULFATE 4 MG/ML INJ (FOR IV/IM USE) IV NR (00:53)
[2025-07-07] MEDS: ONDANSETRON HCL 4MG/2ML INJ IV NR (00:53)
[2025-07-07] MEDS: SODIUM CHLORIDE 0.9% 1,000 ML IV ONE (00:53)
[2025-07-07] MEDS ORDERED: DOCUSATE SODIUM 100MG CAPSULE PO PRN (02:15)
[2025-07-07] MEDS ORDERED: CLONIDINE 0.1MG TABLET PO PRN (02:15)
[2025-07-07] MEDS ORDERED: ACETAMINOPHEN 325MG TABLET PO PRN (02:15)
[2025-07-07] MEDS ORDERED: IPRATROPIUM/ALBUTEROL 0.5-3(2.5)MG/3ML NEB HHN PRN (02:15)
[2025-07-07] MEDS ORDERED: MAGNESIUM/ALUMINUM HYDROXIDE/SIMETHICONE 30ML UDC PO PRN (02:15)
[2025-07-07] MEDS ORDERED: LIDOCAINE/PRILOCAINE CREAM 5 GM TUBE TOP PRN (02:15)
[2025-07-07] MEDS ORDERED: GUAIFENESIN 200MG/10ML SUGAR FREE UDC PO PRN (02:15)
[2025-07-07] MEDS ORDERED: ONDANSETRON HCL 4MG/2ML INJ IV PRN (02:15)
[2025-07-07] MEDS: GABAPENTIN 100MG CAPSULE PO SCH (03:45)
[2025-07-07 04:00] VITALS: BP 100/66; PULSE 66; RESP 16; TEMP 37.1; O2SAT 96
[2025-07-07 04:57] VITALS: BP 100/66; PULSE 66; RESP 16; TEMP 37.0852
[2025-07-07] MEDS: KETOROLAC 15MG/ML VIAL IV NR (05:32)
[2025-07-07] MEDS: DICLOFENAC SODIUM 1% GEL 50GM TOP SCH (05:32)
[2025-07-07] MEDS: LEVOTHYROXINE SODIUM 50MCG TABLET PO SCH (07:16)
[2025-07-07 08:00] VITALS: BP 78/50; PULSE 78; RESP 16; TEMP 36.5; O2SAT 97
[2025-07-07] MEDS: LISINOPRIL 10MG TABLET PO SCH (08:46)
[2025-07-07] MEDS: FUROSEMIDE 40MG/4ML VIAL IV SCH (08:58)
[2025-07-07] MEDS: PANTOPRAZOLE SODIUM 40 MG/VIAL IV SCH (08:59)
[2025-07-07 12:00] VITALS: BP 85/49; PULSE 77; RESP 18; TEMP 36.7; O2SAT 98
[2025-07-07 12:27] LABS: INR 3.4
[2025-07-07 12:42] LABS: TROPONIN I HIGH SENSITIVITY 32 ng/L (3.0-34)
[2025-07-07 12:45] LABS: LDL CHOLESTEROL 93 mg/dL (5-100); TRIGLYCERIDE 84 mg/dL (0-150)
[2025-07-07 12:46] LABS: T4 FREE 0.74 ng/dL (0.89-1.76)
[2025-07-07 12:51] LABS: FOLIC ACID (FOLATE) SERUM 14.44 ng/mL (>5.38)
[2025-07-07 12:55] LABS: C REACTIVE PROTEIN HIGH SENS 69.41 mg/l (<1.00)
[2025-07-07 12:57] LABS: VITAMIN B12 SERUM 430 pg/mL (211-911)
[2025-07-07] MEDS: MIDODRINE HCL 5MG TABLET PO SCH (14:16)
[2025-07-07] MEDS: SODIUM CHLORIDE 0.9% 500 ML IV ONE (15:00)
[2025-07-07 16:00] VITALS: BP 100/53; PULSE 81; RESP 16; TEMP 36.6; O2SAT 96
[2025-07-07] MEDS: ACETAMINOPHEN 325MG TABLET PO PRN (16:45)
[2025-07-07] MEDS ORDERED: TEMAZEPAM 15MG CAPSULE PO PRN (17:45)
[2025-07-07] MEDS: WARFARIN SODIUM 5MG TABLET PO SCH (18:00)
[2025-07-07] MEDS: MELATONIN 3MG TABLET PO SCH (20:08)
[2025-07-07] MEDS: ATORVASTATIN CALCIUM 40MG TABLET PO SCH (20:12)
[2025-07-07] MEDS: RISPERIDONE 1MG TABLET PO SCH (20:12)
[2025-07-08] MEDS: MIDODRINE HCL 5MG TABLET PO NR (01:30)
[2025-07-08] MEDS: SODIUM CHLORIDE 0.9% 100 ML IV ONE (05:02)
[2025-07-08 07:29] LABS: BASOPHILS % 0.5 % (0.0-2.0); EOSINOPHILS % 2.6 % (0.0-5.0); HEMATOCRIT. 25.3 % (36.0-48.0); HEMOGLOBIN. 8.3 g/dL (12.0-16.0); LYMPHOCYTES % 28.1 % (20.0-50.0); MEAN PLATELET VOLUME 6.7 fl (7.4-10.4); MONOCYTES % 7.9 % (2.0-8.0); NEUTROPHILS % 60.9 % (40.0-76.0); PLATELET 308 x1000/uL (130-400); RED BLOOD CELL COUNT 2.78 mill/uL (4.2-5.4); RED CELL DISTRIBUTION WIDTH 18.4 % (11.6-14.6)
[2025-07-08 07:42] LABS: CREATININE 1.3 mg/dL (0.6-1.0)
[2025-07-08 07:43] LABS: TROPONIN I HIGH SENSITIVITY 32.0 ng/L (3.0-34); UREA NITROGEN BLOOD 18.0 mg/dL (9-23)
[2025-07-08 08:00] VITALS: BP 79/48; PULSE 59; RESP 16; TEMP 36.3; O2SAT 97
[2025-07-08 08:50] LABS: ASPARTATE AMINOTRANSFERASE 35 IU/L (<34)
[2025-07-08 08:51] LABS: BILIRUBIN DIRECT 0.1 mg/dL (<=3.0); BILIRUBIN TOTAL 0.3 mg/dL (0.1-1.0); PROTEIN TOTAL 5.7 g/dL (6.0-8.3)
[2025-07-08] MEDS: SODIUM CHLORIDE 0.9% 500 ML IV ONE (09:00)
[2025-07-08 09:26] LABS: INR 3.9
[2025-07-08] MEDS ORDERED: FURO20TA4 PO (10:37)
[2025-07-08] MEDS ORDERED: RISP1 PO (10:37)
[2025-07-08] MEDS ORDERED: FLUO-413 PO (10:37)
[2025-07-08] MEDS ORDERED: LIP40 PO (10:37)
[2025-07-08] MEDS ORDERED: LEVO50TA PO (10:37)
[2025-07-08] MEDS ORDERED: LISI10TA26 PO (10:37)
[2025-07-08] MEDS ORDERED: GABA-529 PO (10:37)
[2025-07-08] MEDS: FLUOXETINE HCL 20MG CAPSULE PO SCH (11:52)
[2025-07-08 12:00] VITALS: BP 91/56; PULSE 82; RESP 16; TEMP 36.3; O2SAT 100
[2025-07-08 13:59] VITALS: BP 91/56; PULSE 82; RESP 16; TEMP 98
[2025-07-08 16:00] VITALS: BP 93/55; PULSE 82; RESP 17; TEMP 36.2; O2SAT 99
[2025-07-08 20:00] VITALS: BP 106/60; PULSE 82; RESP 18; TEMP 36.5; O2SAT 95
[2025-07-08] MEDS: BUPROPION HCL 75MG TABLET PO SCH (21:45)
[2025-07-08] MEDS: DICLOFENAC SODIUM 75MG DR TABLET PO SCH (21:45)
[2025-07-08] MEDS: PREGABALIN 75MG CAPSULE PO SCH (21:45)
[2025-07-09] VITALS: BP 86/68; PULSE 76; RESP 18; TEMP 37.2; O2SAT 100
[2025-07-09 04:00] VITALS: BP 95/80; PULSE 77; RESP 18; TEMP 36.8; O2SAT 100
[2025-07-09 08:00] VITALS: BP 115/72; PULSE 84; RESP 15; TEMP 36.7; O2SAT 97
[2025-07-09 12:00] VITALS: BP 120/73; PULSE 84; RESP 15; TEMP 36.3; O2SAT 100
[2025-07-09 14:31] VITALS: BP 120/73; PULSE 84; RESP 15; TEMP 97.4
[2025-07-10 15:07] LABS: ANTI-JO 1 ABS <0.2 AI (0.0-0.9); RNP ANTIBODY < 0.2 AI (0.0-0.9); SMITH ANTIBODY < 0.2 AI (0.0-0.9)
== END 2025-07-09 15:32 | disposition home or self-care (01) | DRG 553 ==
LOC: ER 22:43 → 5WST 07-07 01:16 → EDBEDREQ 07-07 01:18 → EDBEDREQTM 07-07 01:18 → EDBEDREQDT 07-07 01:18 → ENRESERV 07-07 01:24
PROVIDERS: ADMIT Internal Medicine; ATTEND Internal Medicine
PROC: GZ56ZZZ Individual Psychotherapy, Supportive (ICD-10-PCS; principal; 2025-07-07)
DX: M19.042 Primary osteoarthritis, left hand (principal); I21.4 Non-ST elevation (NSTEMI) myocardial infarction; F33.1 Major depressive disorder, recurrent, moderate; R45.851 Suicidal ideations; I50.22 Chronic systolic (congestive) heart failure; M85.80 Other specified disorders of bone density and structure, unspecified site; E03.9 Hypothyroidism, unspecified; I48.91 Unspecified atrial fibrillation; I11.0 Hypertensive heart disease with heart failure; D64.9 Anemia, unspecified; J44.89 Other specified chronic obstructive pulmonary disease; E78.5 Hyperlipidemia, unspecified; M79.7 Fibromyalgia; M19.041 Primary osteoarthritis, right hand; M17.11 Unilateral primary osteoarthritis, right knee; M17.12 Unilateral primary osteoarthritis, left knee; I25.10 Atherosclerotic heart disease of native coronary artery without angina pectoris; R26.9 Unspecified abnormalities of gait and mobility; I95.9 Hypotension, unspecified; I08.2 Rheumatic disorders of both aortic and tricuspid valves; Z60.2 Problems related to living alone; M32.9 Systemic lupus erythematosus, unspecified; M51.369 Other intervertebral disc degeneration, lumbar region without mention of lumbar back pain or lower extremity pain; D86.9 Sarcoidosis, unspecified; Z95.2 Presence of prosthetic heart valve; Z79.01 Long term (current) use of anticoagulants; Z79.899 Other long term (current) drug therapy; Z88.6 Allergy status to analgesic agent; Z95.1 Presence of aortocoronary bypass graft; Z90.49 Acquired absence of other specified parts of digestive tract
CPT/HCPCS: 36415; 71045; 73110; 73130; 73562; 80048; 80061; 80076; 82550; 82595; 82607; 82746; 83540; 83550; 83880; 84439; 84443; 84484; 84550; 85025; 85651; 86141; 86235; 86850; 86900; 93005; 93970; 96361; 96374; 96375; 97116; 97162; 97166; 99285; A4606; J1885; J1938; J2270; J2405; J2470; J7030